=== PATIENT | male | born 1975 | race Caucasian/White ===

== ENCOUNTER 2019-01-01 13:51 | Outpatient (REF) | payer MEDICARE, MEDICAID, SELFPAY ==
[2019-01-01 20:54] LABS: ALT 37 U/L (12-78); AST 22 U/L (15-37); Albumin 4.3 g/dL (3.4-5.0); Alkaline Phosphatase 75 U/L (46-116); Anion Gap 12.7 mmol/L (3-11); BUN 21 mg/dL (7-18); Bilirubin, Total 0.3 mg/dL (0.2-1.0); CO2 24.3 mmol/L (21.0-32.0); CREATININE 1.41 mg/dL (0.70-1.30); Calcium 9.7 mg/dL (8.5-10.1); Chloride 105 mmol/L (98-107); Cholesterol 194 mg/dL (50-200); Estimated GFR 55.39 (mL/min/1.73m2); Glucose 85 mg/dL (70-100); HDL Cholesterol 36 mg/dL (40-60); LDL CHOLESTEROL 129 mg/dL (<100); Potassium 4.4 mmol/L (3.5-5.1); Sodium 142 mmol/L (136-145); Total Protein 7.4 g/dL (6.4-8.2); Triglyceride 158 mg/dL (30-150)
== END 2019-01-01 14:11 ==
LOC: NCHCN 13:51
PROVIDERS: PCP Nurse Practitioner; Visit Provider Nurse Practitioner
DX: E78.5 Hyperlipidemia, unspecified (principal)
CPT/HCPCS: 80053; 80061; 83721

== ENCOUNTER 2019-01-02 09:53 | Emergency (ER) | payer MEDICARE, MEDICAID, SELFPAY ==
[2019-01-02 09:57] VITALS: BP 133/90; PULSE 111; RESP 20; TEMP 36.9; O2SAT 98
--- NOTE | 2019-01-02 10:15 | W.ED.GENAD ---
Discharge Plan Disposition Patient Disposition: HOME Condition: Fair Discharge Details Chief Complaint: DentalOral Clinical Impression: Dental infection Primary Care Provider: Jessica Butler ED Provider: No [facility] Meds and New Rx's Prescriptions: New clindamycin HCl 150 mg capsule 450 mg PO TID Qty: 63 RF: 0 Continued sumatriptan succinate [Imitrex] 100 MG tablet 100 mg PO PRN PRNRF: 0 simvastatin 20 MG tablet 20 mg PO DAILY RF: 0 Prilosec OTC 20 MG tablet,delayed release (DR/EC) 20 mg PO DAILY RF: 0 ibuprofen 600 MG tablet 600 mg PO Q6H PRNQty: 90 RF: 3 gabapentin 800 MG tablet 800 mg PO BID RF: 0 acetaminophen 500 MG tablet 1,000 mg PO Q6H PRN Qty: 60 RF: 0 mirtazapine 45 MG tablet 60 mg PO DAILY RF: 0 fenofibrate nanocrystallized 145 MG tablet 145 mg PO DAILY RF: 0 epinephrine [EpiPen 2-Raffy] 0.3 MG/0.3 ML auto-injector 0.3 mg IJ DIRECTED PRN (Reason: Anaphylaxis) Qty: 1 RF: 0 hydroxyzine pamoate 100 mg Capsule 150 mg PO DAILY RF: 0 cetirizine 10 mg Tablet 10 mg PO DAILY PRNRF: 0 prazosin 2 mg Capsule 2 mg PO DAILY RF: 0 quetiapine [Seroquel] 400 mg Tablet 400 mg PO BID RF: 0 Discharge Instructions Instructions: Dental Abscess (ED) Additional Instructions: Encourage hydration. Tylenol and ibuprofen as needed for discomfort. He will need definitive care with a dentist, attached a list of local dentist that you may call to discuss follow-up appointments. Please take antibiotics as prescribed. Even if symptoms improve, please take the entire course. If you develop increased swelling, fever/chills or other new/worsening symptoms please seek care urgently once again. Referrals: Jessica Butler [Primary Care Provider] - Discharge Data Discharge Date/Time-TO BE ENTERED AT DEPARTURE: 01/02/19 10:32 Medical Decision Making Patient 43-year-old male presenting today with chief complaint of right lower dental pain. He reports that dental pain began approximately 1 week ago. States that today he awoke with right lower facial swelling and increased discomfort. Patient does not have a dentist, states he has not had attempted to obtain dental care as he does not have dental insurance. He denies any new trauma, fevers or chills. States that he has a known fractured tooth in this area. Has not had an infection in this area historically. On exam, patient has right lower facial swelling consistent with the area of discomfort. No area of fluctuance to suggest a drainable abscess, this seems more soft tissue swelling. Patient has both lingual and buccal tenderness with palpation. Patient appears nontoxic. He does appear quite anxious. Plan to treat with clindamycin. I advised that he will need definitive care with a dentist, discussed this in depth with the patient. We will give him a list of local dentist. We discussed new/worsening symptoms when to seek care urgently once again. All his questions and concerns were addressed and he is in agreement with this plan. HPI General Mode of arrival: ambulatory. Date/Time Provider Initiated Documentation: 01/02/19 10:14. Limitations to Documentation: no limitations. Information obtained by: patient and RN notes reviewed. History of Present Illness 43 year old M presents to the emergency department with the chief complaint of right lower dental pain, described as severe, with intensity rated at 9. Quality is described as aching, and is localized to the mouth. Patient reports no radiation. Patient started experiencing this week(s) (1) and it has been constant. No relieving factors improve symptom(s), Eating worsens symptoms . Patient notes denies chest pain, cough, fever/chills, headaches, nausea/vomiting, rash and shortness of breath. Patient did receive the following treatments prior to arrival, none Related Data Home Medications Medication Instructions Recorded Confirmed Prilosec OTC 20 mg PO DAILY NS 04/24/14 01/02/19 simvastatin 20 mg PO DAILY tab-cap NS 04/24/14 01/02/19 sumatriptan succinate [Imitrex] 100 mg PO PRN PRN tab-cap NS 04/24/14 01/02/19 fenofibrate nanocrystallized 145 mg PO DAILY 07/21/16 01/02/19 mirtazapine 60 mg PO DAILY 07/21/16 01/02/19 epinephrine [EpiPen 2-Raffy] 0.3 mg IJ DIRECTED PRN #1 packet 03/28/17 01/02/19 gabapentin 800 mg PO BID 11/19/17 01/02/19 acetaminophen 1,000 mg PO Q6H PRN #60 tab-cap 11/22/17 01/02/19 ibuprofen 600 mg PO Q6H PRN #90 tab 01/02/18 01/02/19 cetirizine 10 mg PO DAILY PRN 01/02/19 01/02/19 clindamycin HCl 450 mg PO TID #63 cap 01/02/19 hydroxyzine pamoate 150 mg PO DAILY 01/02/19 01/02/19 prazosin 2 mg PO DAILY 01/02/19 01/02/19 quetiapine [Seroquel] 400 mg PO BID 01/02/19 01/02/19 Previous Rx's Medication Instructions Recorded epinephrine [EpiPen 2-Raffy] 0.3 mg IJ DIRECTED PRN #1 packet 03/28/17 acetaminophen 1,000 mg PO Q6H PRN #60 tab-cap 11/22/17 clindamycin HCl 450 mg PO TID #63 cap 01/02/19 Allergies Allergy/AdvReac Type Severity Reaction Status Date / Time venom-honey bee Allergy Severe anaphylasis Unverified 01/02/19 09:59 [bee venom (honey bee)] codeine AdvReac Severe convulsion Unverified 01/02/19 09:59 oxycodone HCl [From Percocet] AdvReac Severe severe Unverified 01/02/19 09:59 vomiting General Stated Complaint: DentalOral BARRY: 4 Review of Systems Constitutional Reports as per HPI, Denies chills, Denies fatigue, Denies fever(s), Denies headache(s) and Denies poor appetite Eyes Denies change in vision and Denies irritation ENT Reports as per HPI, Denies change in voice, Reports dental pain, Denies dysphagia, Denies dizziness, Denies dry mouth, Denies ear discharge, Denies otalgia, Reports facial pain, Denies headache(s), Denies hoarseness, Denies lip swelling, Denies nasal congestion, Denies odynophagia, Denies sore throat, Denies throat swelling, Denies tongue swelling and Reports other (right sided facial swelling) Cardiovascular Reports as per HPI and Denies chest pain Respiratory Reports as per HPI and Denies cough Gastrointestinal Reports as per HPI, Denies dysphagia, Denies nausea, Denies odynophagia and Denies vomiting Integumentary/Breasts Reports as per HPI, Denies erythema, Denies rash and Denies skin pain Neurologic Reports as per HPI, Denies dizziness and Denies headache(s) Endocrine Denies fatigue Allergic/Immunologic Denies lip swelling, Denies throat swelling and Denies tongue swelling PFSH Surgical History Hx of shoulder surgery (Chronic) Social History Smoking/Tobacco Use Status: Former Tobacco Use Alcohol Intake: never Drug use: Never Substance use type: does not use Do you feel safe in your relationship?: Yes Exam Const General: cooperative, healthy appearing, comfortable, no acute distress, well developed and well groomed Nutritional Appearance: average body habitus and well nourished Orientation: alert and awake [facility] Head: normal to inspection, normocephalic and atraumatic Ears: hearing grossly normal bilaterally, external ears normal and TM's normal bilaterally General nose exam: external nose normal and nares normal Face and sinus: sinuses nontender, no erythema, no fluctuance, tenderness (right lower jaw with associated swelling, no fluctuance) and dry mucous membranes Mouth: lip normal, tongue normal, moist mucous membranes abnormal (dry), no audible dysphonia, no muffled voice, no trismus and No restricted motion Teeth and gingiva: poor dentition (fractured tooth #30, buccal and lingual pain. No fluctuance) Throat: posterior oropharynx normal, tonsils normal and uvula midline Eyes General: appearance normal, both eyes and all related structures Neck Neck: normal visual inspection, full ROM, no lymphadenopathy, supple and no anterior neck swelling Resp Effort & Inspection: normal respiratory effort, able to speak in complete sentences and no respiratory distress Auscultation: clear to auscultation bilaterally, no rales, no rhonchi and no wheezes Cardio Rate: regular rate Rhythm: regular rhythm Heart Sounds: S1 normal and S2 normal Skin General skin exam: no rashes or lesions noted Trauma: no lacerations or abrasions Neuro General: alert and awake Cognition: normal cognition Speech: speech normal Gait: normal gait Psych Appearance: grossly normal and well kempt Mental Status: mental status grossly normal Speech and Movement: speech and movement normal Course Vital Signs Temperature 36.9 C 01/02/19 09:57 Pulse 111 H 01/02/19 09:57 Respiratory Rate 20 01/02/19 09:57 Blood Pressure 133/90 01/02/19 09:57 Pulse Oximetry 98 01/02/19 09:57 Temperature 36.9 C 01/02/19 09:57 Temperature Source Temporal Artery Scan 01/02/19 09:57 Pulse 111 H 01/02/19 09:57 Respiratory Rate 20 01/02/19 09:57 Respiratory Effort Non-Labored 01/02/19 09:57 Blood Pressure 133/90 01/02/19 09:57 Pulse Oximetry 98 01/02/19 09:57 Oxygen Delivery Method Room Air 01/02/19 09:57 Oxygen Flow Rate 0 01/02/19 09:57 Pain Level 9 01/02/19 09:57
[2019-01-02] MEDS: Acetaminophen 325 MG TAB 650 MG PO (10:28)
[2019-01-02] MEDS: Ibuprofen 600 MG TAB PO (10:28)
[2019-01-02] MEDS: Clindamycin 150 MG CAP 450 MG PO (10:28)
[2019-01-02 10:33] VITALS: BP 133/90; PULSE 111; RESP 20; TEMP 36.9; O2SAT 98
== END 2019-01-02 10:32 | disposition home or self-care (01) ==
PROVIDERS: Emergency Provider Physician Assistant; PCP Nurse Practitioner
DX: K04.7 Periapical abscess without sinus (principal)
CPT/HCPCS: 99283

== ENCOUNTER 2019-03-27 02:32 | Outpatient (CLI) | payer MEDICARE, MEDICAID, SELFPAY ==
--- NOTE | 2019-04-14 17:22 | HOLTER_ITS ---
DATE OF DICTATION: April 14, 2019 STUDY INDICATION: Palpitations. REQUESTING PROVIDER: Not available. FINDINGS: The patient was monitored for 23 hours. Average heart rate 104 bpm, range 87 to 138 bpm. No ectopy. No pauses greater than 3 seconds. No high-degree heart block. Nine patient events. All events correlated with sinus rhythm. FINAL INTERPRETATION: Sinus tachycardia.
== END 2019-03-27 02:52 ==
PROVIDERS: PCP Nurse Practitioner; Visit Provider Nurse Practitioner
DX: R00.2 Palpitations (principal); R00.0 Tachycardia, unspecified
CPT/HCPCS: 93005; 93010; 93225

== ENCOUNTER 2019-03-28 15:51 | Outpatient (CLI) | payer MEDICARE, MEDICAID, SELFPAY | END 2019-03-28 16:11 | PROVIDERS: PCP Nurse Practitioner; Visit Provider Nurse Practitioner | DX: R00.2 Palpitations (principal); R00.0 Tachycardia, unspecified | CPT/HCPCS: 93226 ==

== ENCOUNTER 2019-04-14 08:49 | Outpatient (CLI) | payer MEDICARE, MEDICAID, SELFPAY | END 2019-04-14 09:09 | PROVIDERS: PCP Nurse Practitioner; Referring Provider Nurse Practitioner; Visit Provider Student in an Organized Health Care Education/Training Program | DX: R00.2 Palpitations (principal); R00.0 Tachycardia, unspecified | CPT/HCPCS: 93227 ==

== ENCOUNTER 2021-12-07 14:13 | Outpatient (REF) | payer MEDICARE, MEDICAID, SELFPAY ==
[2021-12-07 22:19] LABS: Abs Immature Grans 0.02 10^3/uL (0.0-0.06); Absolute Basophil Count 0.03 10^3/uL (0.0-0.2); Absolute Lymphocyte Count 1.35 10^3/uL (1.2-3.4); Absolute Monocyte Count 0.48 10^3/uL (0.1-0.8); Absolute Neutrophil Count 3.67 10^3/uL (1.2-6.7); Basophils % 0.5; HCT 48.5 % (40.0-50.0); HGB 15.8 g/dL (13.5-17.5); Immature Grans % 0.4; Lymphocytes % 24.3; MCH 26.5 pg (27.0-33.0); MCHC 32.6 % (32.0-36.0); MCV 81 fL (80-95); MPV 11.2 fL (8.0-11.0); Monocytes % 8.6; Neutrophils % 66.2; Platelet Count 274 10^3/uL (130-400); RBC 5.96 10^6/uL (4.36-5.78); RDW 11.9 % (11.8-14.1); RDW-SD 34.5 fL; WBC 5.55 10^3/uL (4.4-10.8)
[2021-12-07 23:16] LABS: ALT 55 U/L (16-63); AST 27 U/L (15-37); Alkaline Phosphatase 127 U/L (46-116); Anion Gap 10.9 mmol/L (3-11); BUN 12 mg/dL (7-18); Bilirubin, Total 0.6 mg/dL (0.2-1.0); CO2 25.1 mmol/L (21.0-32.0); CREATININE 1.1 mg/dL (0.70-1.30); Calcium 9.1 mg/dL (8.5-10.1); Calculated LDL 195 mg/dL (<100); Chloride 106 mmol/L (98-107); Cholesterol 284 mg/dL (<200); Glucose 128 mg/dL (74-106); HDL Cholesterol 36 mg/dL (40-60); Potassium 4.1 mmol/L (3.5-5.1); Sodium 142 mmol/L (136-145); Total Protein 7.4 g/dL (6.4-8.2); Triglyceride 268 mg/dL (<150)
== END 2021-12-07 14:14 | disposition home or self-care (01) ==
LOC: NCHCN 14:13
PROVIDERS: PCP Nurse Practitioner; Visit Provider Nurse Practitioner Family
DX: E78.5 Hyperlipidemia, unspecified (principal); F43.10 Post-traumatic stress disorder, unspecified; F41.8 Other specified anxiety disorders; F42.8 Other obsessive-compulsive disorder
CPT/HCPCS: 80053; 80061; 85025

== ENCOUNTER 2022-08-30 18:13 | Outpatient (REF) | payer MEDICARE, MEDICAID, SELFPAY ==
[2022-08-30 19:38] LABS: Abs Immature Grans 0.01 10^3/uL (0.0-0.06); Absolute Basophil Count 0.01 10^3/uL (0.0-0.2); Absolute Eosinophil Count 0.01 10^3/uL (0.0-0.7); Absolute Lymphocyte Count 1.34 10^3/uL (1.2-3.4); Absolute Monocyte Count 0.36 10^3/uL (0.1-0.8); Absolute Neutrophil Count 2.91 10^3/uL (1.2-6.7); Basophils % 0.2; Eosinophils % 0.2; HCT 44.9 % (40.0-50.0); HGB 14.4 g/dL (13.5-17.5); Immature Grans % 0.2; Lymphocytes % 28.9; MCH 24.3 pg (27.0-33.0); MCHC 32.1 % (32.0-36.0); MCV 76 fL (80-95); MPV 10.4 fL (8.0-11.0); Monocytes % 7.8; Neutrophils % 62.7; Platelet Count 301 10^3/uL (130-400); RBC 5.93 10^6/uL (4.36-5.78); RDW 15.1 % (11.8-14.1); RDW-SD 39.8 fL; WBC 4.64 10^3/uL (4.4-10.8)
[2022-08-30 19:50] LABS: ALT 46 U/L (16-63); AST 34 U/L (15-37); Albumin 4.2 g/dL (3.4-5.0); Alkaline Phosphatase 110 U/L (46-116); Anion Gap 7.9 mmol/L (3-11); BUN 9 mg/dL (7-18); Bilirubin, Total 0.4 mg/dL (0.2-1.0); CO2 27.1 mmol/L (21.0-32.0); CREATININE 1.3 mg/dL (0.70-1.30); Calcium 9.7 mg/dL (8.5-10.1); Calculated LDL 132 mg/dL (<100); Chloride 103 mmol/L (98-107); Cholesterol 205 mg/dL (<200); Estimated GFR 69.04 (mL/min/1.73m2); Glucose 132 mg/dL (74-106); HDL Cholesterol 40 mg/dL (40-60); Potassium 4.7 mmol/L (3.5-5.1); Sodium 138 mmol/L (136-145); Total Protein 7.3 g/dL (6.4-8.2); Triglyceride 166 mg/dL (<150)
== END 2022-08-30 18:14 | disposition home or self-care (01) ==
LOC: NCHCN 18:13
PROVIDERS: PCP Nurse Practitioner; Visit Provider Nurse Practitioner Family
DX: E78.5 Hyperlipidemia, unspecified (principal); F41.8 Other specified anxiety disorders; Z79.899 Other long term (current) drug therapy
CPT/HCPCS: 80053; 80061; 85025

== ENCOUNTER 2024-04-09 14:54 | Outpatient (REF) | payer MEDICARE, MEDICAID, SELFPAY ==
[2024-04-09 20:21] LABS: Abs Immature Grans 0.02 10^3/uL (0.0-0.06); Absolute Basophil Count 0.03 10^3/uL (0.0-0.2); Absolute Lymphocyte Count 1.45 10^3/uL (1.2-3.4); Absolute Monocyte Count 0.43 10^3/uL (0.1-0.8); Absolute Neutrophil Count 3.76 10^3/uL (1.2-6.7); Basophils % 0.5 %; HCT 46.6 % (40.0-50.0); HGB 15.1 g/dL (13.5-17.5); Immature Grans % 0.4 %; Lymphocytes % 25.5 %; MCH 27.9 pg (27.0-33.0); MCHC 32.4 % (32.0-36.0); MCV 86 fL (80-95); MPV 11.3 fL (8.0-11.0); Monocytes % 7.6 %; Platelet Count 283 10^3/uL (130-400); RBC 5.42 10^6/uL (4.36-5.78); RDW 15.2 % (11.8-14.1); RDW-SD 47.6 fL; WBC 5.69 10^3/uL (4.4-10.8)
[2024-04-09 20:47] LABS: ALT 24 U/L (16-63); AST 25 U/L (15-37); Albumin 3.9 g/dL (3.4-5.0); Alkaline Phosphatase 111 U/L (46-116); Anion Gap 8.7 mmol/L (3-11); BUN 5 mg/dL (7-18); Bilirubin, Total 0.52 mg/dL (0.2-1.0); CO2 27.3 mmol/L (21.0-32.0); CREATININE 1.1 mg/dL (0.70-1.30); Calcium 9.8 mg/dL (8.5-10.1); Calculated LDL 128 mg/dL (<100); Chloride 101 mmol/L (98-107); Cholesterol 211 mg/dL (<200); Estimated GFR 83.84 (mL/min/1.73m2); Glucose 298 mg/dL (74-106); HDL Cholesterol 42 mg/dL (40-60); Potassium 4.6 mmol/L (3.5-5.1); Sodium 137 mmol/L (136-145); Total Protein 7.7 g/dL (6.4-8.2); Triglyceride 208 mg/dL (<150)
[2024-04-09 21:07] LABS: Hemoglobin A1C 11.3 % (<5.7)
== END 2024-04-09 14:55 | disposition home or self-care (01) ==
LOC: NCHCN 14:54
PROVIDERS: Visit Provider Nurse Practitioner Family
DX: E78.5 Hyperlipidemia, unspecified (principal); R73.09 Other abnormal glucose
CPT/HCPCS: 80053; 80061; 83036; 85025

== ENCOUNTER 2024-06-11 14:39 | Outpatient (CLI) | payer MEDICARE, MEDICAID, SELFPAY ==
--- NOTE | 2024-06-11 13:15 | DI.RAD_ITS ---
Exam(s) XR HAND RT COMPLETE EXAM: XR HAND RT COMPLETE CLINICAL HISTORY: RIGHT HAND MASS. TECHNIQUE: 2D digital imaging was performed of the right hand. Three images were obtained. AP, late ral and oblique views were obtained. COMPARISON: CR RIGHT WRIST COMPLETE from 02/11/2014 FINDINGS: BONES: No acute fracture is present. No bony destructive lesion is seen. JOINTS: No dislocation present. The joint spaces are well maintained. SOFT TISSUE: No abnormal calcification is seen in the soft tissues. The soft tissues are grossly unre markable. IMPRESSION: Unremarkable radiographs of the right hand.If there is continued concern for soft tissue mass, an MRI or ultrasound should be considered for further evaluation. DATA REPOSITORY: RADIATION DOSE DELIVERED:
== END 2024-06-11 14:40 | disposition home or self-care (01) ==
LOC: DIORS 14:39
PROVIDERS: PCP Nurse Practitioner Family; Referring Provider Nurse Practitioner Family; Visit Provider Student in an Organized Health Care Education/Training Program
DX: M79.641 Pain in right hand (principal); M67.921 Unspecified disorder of synovium and tendon, right upper arm
CPT/HCPCS: 99203; 73130